=== PATIENT | female | born 1980 | race Caucasian/White ===

== ENCOUNTER 2020-04-09 10:51 | Emergency (ER) | payer OTHER ==
[~2020-04-09] VITALS: Ht 157.5 cm; Wt 72.7 kg
[2020-04-09] MEDS ORDERED: HALOPERIDOL LACTATE 5 MG/ML VIAL. IVP ONE (11:00)
[2020-04-09 11:19] LABS: BASO # 0.1 x10^3/uL (0.0-0.2); BASO % 1 % (0-3); EOS # 0.1 x10^3/uL (0.0-0.7); EOS % 1 % (0-3); HEMATOCRIT 39.7 % (36.0-47.0); HEMOGLOBIN 14.1 g/dL (12.0-15.5); LYMPH # 2.4 x10^3/uL (1.0-4.8); LYMPH % 24 % (24-48); MEAN CORPUSCULAR HEMOGLOBIN 31 pg (25-35); MEAN CORPUSCULAR HGB CONC 35 g/dL (31-37); MEAN CORPUSCULAR VOLUME 87 fL (79-100); MONO # 0.4 x10^3/uL (0.0-1.1); MONO % 4 % (0-9); NEUT % 70 % (31-73); PLATELET COUNT 356 x10^3/uL (140-400); RED BLOOD COUNT 4.58 x10^6/uL (3.50-5.40); RED CELL DISTRIBUTION WIDTH 14.7 % (11.5-14.5); WHITE BLOOD COUNT 9.9 x10^3/uL (4.0-11.0)
--- NOTE | 2020-04-09 11:20 | PHYS DOC ---
General Adult EDM: Chief Complaint: DRUG ABUSE HPI: HPI: History taken from patient and EMS. Patient is a 3-year-old female found a local gas station due to altered mental status. She does endorse a history of schizophrenia. States however this is different. She does note that she has used amphetamines recently to try and stay awake. States she is hearing voices and seeing dark shadows. She states she feels that something is inside her body. She denies any pain related complaints. She does note a history of hospitalization due to mental health disorders in the past. Denies any recent hospitalizations. Denies any suicidal homicidal ideations. No medications given in route by EMS. They state that they were called to the gaseous because the patient was acting erratic. Patient denies any drug ingestions. Denies alcohol ingestions. No further history can be obtained. Review of Systems: Review of Systems: Constitutional: Denies fever or chills. [] Eyes: Denies change in visual acuity. [] HENT: Denies nasal congestion or sore throat. [] Respiratory: Denies cough or shortness of breath. [] Cardiovascular: Denies chest pain or edema. [] GI: Denies abdominal pain, nausea, vomiting, bloody stools or diarrhea. [] : Denies dysuria. [] Musculoskeletal: Denies back pain or joint pain. [] Integument: Denies rash. [] Neurologic: Denies headache, focal weakness or sensory changes. [] Endocrine: Denies polyuria or polydipsia. [] Lymphatic: Denies swollen glands. [] Psychiatric: Positive for psychosis Heart Score: Risk Factors: Risk Factors: DM, Current or recent (<one month) smoker, HTN, HLP, family history of CAD, obesity. Risk Scores: Score 0 - 3: 2.5% MACE over next 6 weeks - Discharge Home Score 4 - 6: 20.3% MACE over next 6 weeks - Admit for Clinical Observation Score 7 - 10: 72.7% MACE over next 6 weeks - Early Invasive Strategies Current Medications: Current Medications Medications (Trade) Dose Ordered Sig/James Start Time Stop Time Status Last Admin Dose Admin Haloperidol Lactate (Haldol Inj) 5 mg 1X ONCE 04/09/20 11:00 04/09/20 11:01 UNV Allergies: Allergies: Allergies Coded Allergies Type Severity Reaction Last Updated Verified No Known Drug Allergies 04/09/20 No Physical Exam: PE: Constitutional: Well developed, well nourished, no acute distress, non-toxic appearance. [] HENT: Normocephalic, atraumatic, bilateral external ears normal, oropharynx moist, no oral exudates, nose normal. [] Eyes: PERRLA, EOMI, conjunctiva normal, no discharge. [] Neck: Normal range of motion, no tenderness, supple, no stridor. [] Cardiovascular:Heart rate regular rhythm, no murmur [] Lungs & Thorax: Bilateral breath sounds clear to auscultation [] Abdomen: soft, no tenderness, no masses, no pulsatile masses. [] Skin: Warm, dry, no erythema, no rash. [] Back: No tenderness, no CVA tenderness. [] Extremities: No tenderness, no cyanosis, no clubbing, ROM intact, no edema. [] Neurologic: Alert with intact cognitive function. No aphasia, dysarthria, or neglect. GCS 15. Pupils 3 mm briskly reactive b/l. No APD present. Cranial nerves 2-12 grossly intact; no facial asymmetry present, tongue midline, shoulder shrugging strength intact. Strength 5/5 and symmetric throughout. Light touch sensation intact throughout. Cerebellar testing appropriate without evidence of dysdiadochokinesia. DTR's 2+ in all 4 extremities. Negative pronator drift bilaterally. Gait normal Psychologic: Tangential thought process. Responding to visual and auditory hallucinations. Rapid and pressured speech. Intermittently agitated. Current Patient Data: Labs: Laboratory Tests Test 04/09/20 11:00 04/09/20 14:35 White Blood Count 9.9 x10^3/uL Red Blood Count 4.58 x10^6/uL Hemoglobin 14.1 g/dL Hematocrit 39.7 % Mean Corpuscular Volume 87 fL Mean Corpuscular Hemoglobin 31 pg Mean Corpuscular Hemoglobin Concent 35 g/dL Red Cell Distribution Width 14.7 % Platelet Count 356 x10^3/uL Neutrophils (%) (Auto) 70 % Lymphocytes (%) (Auto) 24 % Monocytes (%) (Auto) 4 % Eosinophils (%) (Auto) 1 % Basophils (%) (Auto) 1 % Neutrophils # (Auto) 7.0 x10^3/uL Lymphocytes # (Auto) 2.4 x10^3/uL Monocytes # (Auto) 0.4 x10^3/uL Eosinophils # (Auto) 0.1 x10^3/uL Basophils # (Auto) 0.1 x10^3/uL Maternal Serum HCG Beta Subunit < 1 mIU/mL Sodium Level 140 mmol/L Potassium Level 3.7 mmol/L Chloride Level 104 mmol/L Carbon Dioxide Level 24 mmol/L Anion Gap 12 Blood Urea Nitrogen 7 mg/dL Creatinine 0.9 mg/dL Estimated GFR (Cockcroft-Gault) 69.3 BUN/Creatinine Ratio 8 Glucose Level 124 mg/dL Calcium Level 9.4 mg/dL Total Bilirubin 0.4 mg/dL Aspartate Amino Transf (AST/SGOT) 17 U/L Alanine Aminotransferase (ALT/SGPT) 26 U/L Alkaline Phosphatase 106 U/L Creatine Kinase 70 U/L Total Protein 7.2 g/dL Albumin 3.9 g/dL Albumin/Globulin Ratio 1.2 Lipase 84 U/L Salicylates Level 5.6 mg/dL Salicylate Last Dose Date Unknown Salicylate Last Dose Time Unknown Acetaminophen Level < 2 mcg/ml Acetaminophen Last Dose Date Unknown Acetaminophen Last Dose Time Unknown Ethyl Alcohol Level < 10 mg/dL Urine Collection Type Unknown Urine Color Yellow Urine Clarity Clear Urine pH 7.5 Urine Specific [place] <=1.005 Urine Protein Negative mg/dL Urine Glucose (UA) Negative mg/dL Urine Ketones (Stick) Negative mg/dL Urine Blood Negative Urine Nitrite Negative Urine Bilirubin Negative Urine Urobilinogen Dipstick 1.0 mg/dL Urine Leukocyte Esterase Negative Urine RBC 0 /HPF Urine WBC 0 /HPF Urine Squamous Epithelial Cells Mod /LPF Urine Bacteria Few /HPF Urine Opiates Screen Neg Urine Methadone Screen Neg Urine Barbiturates Neg Urine Phencyclidine Screen Neg Urine Amphetamine/Methamphetamine Pos Urine Benzodiazepines Screen Neg Urine Cocaine Screen Neg Urine Cannabinoids Screen Neg Urine Ethyl Alcohol Neg Current Medications Medications (Trade) Dose Ordered Sig/James Route PRN Reason Start Time Stop Time Status Last Admin Dose Admin Haloperidol Lactate (Haldol Inj) 5 mg 1X ONCE IVP 04/09/20 11:00 04/09/20 11:18 DC 04/09/20 11:36 Nicotine (Nicoderm Cq 21mg) 1 patch PRN DAILY PRN TD SMOKING CESSATION 04/09/20 14:30 04/09/20 15:22 Vital Signs: Vital Signs Date Time Temp Pulse Resp B/P (MAP) Pulse Ox O2 Delivery O2 Flow Rate FiO2 04/09/20 15:58 92 20 149/79 (102) 99 Room Air 04/09/20 14:38 20 122/83 (96) Room Air 04/09/20 13:52 88 113/75 (88) 97 Room Air 04/09/20 13:22 94 108/63 (78) 98 Room Air 04/09/20 12:24 106 18 114/72 (86) 98 Room Air 04/09/20 10:51 99.1 113 20 142/80 (100) 100 Room Air 99.1 EKG: EKG: [] EKG consistent with sinus tachycardia. Ventricular rate 105 bpm. Left axis noted. Intervals normal. No acute ischemic changes noted. Radiology/Procedures: Radiology/Procedures: [facility] [address] [place] [address] IMAGING REPORT Signed PATIENT: CYNTHIA SAUCEDO ACCOUNT: [id number] : 1980 LOCATION: ER AGE: 39 SEX: F EXAM STATUS: PRE ER ORD. PHYSICIAN: ONIEL MCKNIGHT DO REASON: AMS PROCEDURE: CT HEAD AND CERVICAL SPINE WO EXAM: 1. CT HEAD WITHOUT CONTRAST. 2. CT CERVICAL SPINE WITHOUT CONTRAST. HISTORY: Altered mental status, trauma. TECHNIQUE: Computed tomography of the head and cervical spine was performed without intravenous contrast. One or more of the following individualized dose reduction techniques were utilized for this examination: 1. Automated exposure control. 2. Adjustment of the mA and/or kV according to patient size. 3. Use of iterative reconstruction technique. COMPARISON: None. FINDINGS: There is no intracranial hemorrhage. Ivan-white differentiation is preserved. The ventricles are normal in size and position. The visualized paranasal sinuses appear clear. The orbits are unremarkable. The temporal bones are unremarkable. The calvarium reveals no suspicious lesions. Straightening of the normal cervical lordosis is likely positional. There is mild osteoarthritis at C1/2. No fractures are identified. Degenerative disc disease is mild to moderate at C5-6. There is no prevertebral soft tissue swelling. There is a moderate posterior disc bulge at C5-6. Uncovertebral osteoarthritis is moderate to severe on the left greater than right. Neural foraminal stenosis is moderate on the left and moderate to severe on the right. Central canal stenosis appears at least mild. IMPRESSION: 1. No acute intracranial findings. 2. No cervical fracture or malalignment. 3. Moderate degenerative changes at C5-6 results in moderate to severe bilateral neural foraminal stenosis and at least mild central canal stenosis. MRI could further assess stenosis if there is persistent concern. Electronically signed by: Vivien Devine MD (04/09/2020 12:45 PM) [id number] DICTATED and SIGNED BY: RENE DEVINE MD DATE: 04/09/20 [id number] [] Course & Med Decision Making: Course & Med Decision Making Pertinent Labs and Imaging studies reviewed. (See chart for details) [] Patient is a 39-year-old female who presents via EMS for altered mental status. Her EMS there called her local gas agent because patient was experiencing erratic behavior. On arrival patient does appear to be responding to auditory and visual stimuli. She does note history of schizophrenia and rece nt methamphetamine usage. No obvious focal neurologic deficits appreciated. Given her acute psychosis 5 mg of IV Haldol was administered. Broad-spectrum work-up was obtained. CT imaging without acute abnormality. Urinalysis does show positive amphetamines. Maner of labs unremarkable. Patient was evaluated psychiatric assessment team. Patient to become much more calm and rational after receiving medication. She was monitored in the emergency department for quite some time. Continues to deny any suicidal homicidal ideations. Psychiatric assessment team as well as myself do not feel she is a threat to herself. She was to follow-up with mental health services in 2 days. Does have Zyprexa at home that she takes nightly. Patient is appropriate for discharge home. Precautions discussed and understood. Stable for discharge home. Dragon Disclaimer: Zackary Disclaimer: This electronic medical record was generated, in whole or in part, using a voice recognition dictation system. Departure Departure Impression: Primary Impression: Psychosis Qualified Codes: F29 - Unspecified psychosis not due to a substance or known physiological condition Additional Impression: Amphetamine abuse Disposition: 01 DC HOME SELF CARE/HOMELESS Condition: STABLE Patient Instructions: Methamphetamine Abuse, Complications Additional Instructions: Please follow-up with your mental provider in 2 days at your regularly scheduled appointment. ONIEL MCKNIGHT DO Apr 09, 2020 11:20
[2020-04-09 11:40] LABS: CALCIUM 9.4 mg/dL (8.5-10.1); CREATININE 0.9 mg/dL (0.6-1.0); GFR 69.3; POTASSIUM 3.7 mmol/L (3.5-5.1)
[2020-04-09 11:45] LABS: ALBUMIN 3.9 g/dL (3.4-5.0); ALBUMIN/GLOBULIN RATIO 1.2 (1.0-1.7); TOTAL BILIRUBIN 0.4 mg/dL (0.2-1.0); TOTAL PROTEIN 7.2 g/dL (6.4-8.2)
[2020-04-09 11:47] LABS: ACETAMIN < 2 mcg/ml (10-30); ETHANOL < 10 mg/dL (0-10); SALIC 5.6 mg/dL (2.8-20.0)
--- NOTE | 2020-04-09 12:04 | RAD ---
EXAM: CHEST ONE VIEW. HISTORY: Altered mental status.. COMPARISON: None. FINDINGS: A frontal view of the chest is obtained. There are no confluent infiltrates. There is no pneumothorax or pleural effusion. The heart is not enlarged. IMPRESSION: 1. No confluent infiltrates. Electronically signed by: Vivien Devine MD (04/09/2020 12:01 PM) [id number]
--- NOTE | 2020-04-09 12:48 | RAD ---
EXAM: 1. CT HEAD WITHOUT CONTRAST. 2. CT CERVICAL SPINE WITHOUT CONTRAST. HISTORY: Altered mental status, trauma. TECHNIQUE: Computed tomography of the head and cervical spine was performed without intravenous contrast. One or more of the following individualized dose reduction techniques were utilized for this examination: 1. Automated exposure control. 2. Adjustment of the mA and/or kV according to patient size. 3. Use of iterative reconstruction technique. COMPARISON: None. FINDINGS: There is no intracranial hemorrhage. Ivan-white differentiation is preserved. The ventricles are normal in size and position. The visualized paranasal sinuses appear clear. The orbits are unremarkable. The temporal bones are unremarkable. The calvarium reveals no suspicious lesions. Straightening of the normal cervical lordosis is likely positional. There is mild osteoarthritis at C1/2. No fractures are identified. Degenerative disc disease is mild to moderate at C5-6. There is no prevertebral soft tissue swelling. There is a moderate posterior disc bulge at C5-6. Uncovertebral osteoarthritis is moderate to severe on the left greater than right. Neural foraminal stenosis is moderate on the left and moderate to severe on the right. Central canal stenosis appears at least mild. IMPRESSION: 1. No acute intracranial findings. 2. No cervical fracture or malalignment. 3. Moderate degenerative changes at C5-6 results in moderate to severe bilateral neural foraminal stenosis and at least mild central canal stenosis. MRI could further assess stenosis if there is persistent concern. Electronically signed by: Vivien Devine MD (04/09/2020 12:45 PM) [id number]
[2020-04-09] MEDS ORDERED: NICOTINE 21MG PATCH. TD PRN (14:30)
[2020-04-09 14:46] LABS: BILIRUBIN,URINE NEGATIVE (NEG); CLARITY,URINE CLEAR; COLOR,URINE YELLOW; NITRITE,URINE NEGATIVE (NEG); PH,URINE 7.5 (<5.0-8.0); PROTEIN,URINE NEGATIVE (NEG-TRACE)
[2020-04-09 14:53] LABS: AMPHETAMINE/METHAMPHETAMINE POS (NEG); BARBITURATES NEG (NEG); BENZODIAZEPINES NEG (NEG); CANNABINOIDS NEG (NEG); COCAINE NEG (NEG); METHADONE NEG (NEG); OPIATES NEG (NEG); PHENCYCLIDINE NEG (NEG)
[2020-04-09 15:06] LABS: BACTERIA,URINE FEW /HPF (0-FEW); RBC,URINE 0 /HPF (0-2); WBC,URINE 0 /HPF (0-4)
[2020-04-09 15:58] VITALS: BP 149/79
--- NOTE | 2020-04-10 18:50 | EKG ---
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
== END 2020-04-09 16:30 | disposition home or self-care (01) ==
LOC: ER 10:51
DX: F29 Unspecified psychosis not due to a substance or known physiological condition (principal); F15.10 Other stimulant abuse, uncomplicated; R41.82 Altered mental status, unspecified; M54.2 Cervicalgia; F20.9 Schizophrenia, unspecified; I45.10 Unspecified right bundle-branch block
CPT/HCPCS: 36415; 70450; 71045; 72125; 80053; 80307; 80329; 81001; 82550; 83690; 84702; 85025; 93005; 99285; G0480; J1630

== ENCOUNTER 2020-06-06 22:34 | Emergency (ER) | payer OTHER ==
[~2020-06-06] VITALS: Ht 157.5 cm; Wt 68.0 kg
[2020-06-06] MEDS ORDERED: LORazepam 0.5 MG TABLET PO ONE ×2 (23:00→23:45)
[2020-06-06 23:05] LABS: BARBITURATES NEG (NEG); BENZODIAZEPINES NEG (NEG); CANNABINOIDS NEG (NEG); COCAINE NEG (NEG); METHADONE NEG (NEG); OPIATES NEG (NEG); PHENCYCLIDINE NEG (NEG)
[2020-06-06 23:06] LABS: AMPHETAMINE/METHAMPHETAMINE POS (NEG)
--- NOTE | 2020-06-06 23:14 | PHYS DOC ---
Past Medical History Past Medical History: Anxiety, Schizophrenia (JOHNSON ALLAN DO) Past Surgical History: (JOHNSON ALLAN DO) Smoking Status: Current Every Day Smoker Alcohol Use: None (JOHNSON ALLAN DO) General Adult EDM: Chief Complaint: PSYCH EVALUATION HPI: HPI: 39-year-old female past medical history of anxiety and schizophrenia (on Zoloft and Zyprexa), presents to the ED brought in by EMS after patient called 911, concern for visual hallucinations, "seeing a demon." Pt states demon is speaking to her but it's "nothing bad." Denies any assault or trauma. Admits to smoking methamphetamine earlier today. Denies any other coingestants. Denies any suicidal or homicidal ideations. C/o "it's hot," and points to her left hand. Reports compliance with her medications, no other co-ingestants. Able to obtain a history on repeat exams-pt easily distracted and overwhelmed "you're asking me too many questions." (JOHNSON ALLAN DO) Review of Systems: Review of Systems: Constitutional: Denies fever or chills. [] Eyes: Denies change in visual acuity. [] HENT: Denies nasal congestion or sore throat. [] Respiratory: Denies cough or shortness of breath. [] Cardiovascular: Denies chest pain or edema. [] GI: Denies abdominal pain, nausea, vomiting, bloody stools or diarrhea. [] : Denies dysuria or hematuria Musculoskeletal: Denies back pain or joint pain. [] Integument: Denies rash or sweating Neurologic: Denies headache, focal weakness or sensory changes. [] Endocrine: Denies polyuria or polydipsia. [] Lymphatic: Denies swollen glands. [] Psychiatric: Denies SI or HI (JOHNSON ALLAN DO) Heart Score: Risk Factors: Risk Factors: DM, Current or recent (<one month) smoker, HTN, HLP, family history of CAD, obesity. Risk Scores: Score 0 - 3: 2.5% MACE over next 6 weeks - Discharge Home Score 4 - 6: 20.3% MACE over next 6 weeks - Admit for Clinical Observation Score 7 - 10: 72.7% MACE over next 6 weeks - Early Invasive Strategies (JOHNSON ALLAN DO) Current Medications: Current Medications Medications (Trade) Dose Ordered Sig/James Start Time Stop Time Status Last Admin Dose Admin Lorazepam (Ativan) 0.25 mg 1X ONCE 06/06/20 23:00 06/06/20 23:01 DC (JOHNSON ALLAN DO) Allergies: Allergies: Allergies Coded Allergies Type Severity Reaction Last Updated Verified No Known Drug Allergies 04/09/20 No (JOHNSON ALLAN DO) Physical Exam: PE: Constitutional: no acute distress, non-toxic upkept appearance. HENT: Normocephalic, atraumatic, poor dentition, no signs of trauma Eyes: EOMI, conjunctiva normal, no discharge. Neck: Normal range of motion, supple, Cardiovascular: S1/2 present, regular rhythm Lungs & Thorax: Speaking in full sentences, bilateral equal chest rise, no tachypnea or increased work of breathing Abdomen: soft, no tenderness, Skin: Warm, dry, no erythema, no rash. [] Back: No tenderness, no CVA tenderness. [] Extremities: No tenderness or swelling, red left hand - multiple hair torniquests on upper forearm fitting tightly - after removed, perfusion normal Neurologic: Alert and oriented to self/location/year, normal motor function, normal sensory function, no focal deficits noted. [] Psychologic: very distracted and paranoid, suspect active AHs/VHs, calm, mild irritablity with frequent questioning (JOHNSON ALLAN DO) Current Patient Data: Labs: Laboratory Tests Test 06/06/20 22:50 06/06/20 22:53 Urine Opiates Screen Neg (NEG) Urine Methadone Screen Neg (NEG) Urine Barbiturates Neg (NEG) Urine Phencyclidine Screen Neg (NEG) Urine Amphetamine/Methamphetamine Pos (NEG) Urine Benzodiazepines Screen Neg (NEG) Urine Cocaine Screen Neg (NEG) Urine Cannabinoids Screen Neg (NEG) Urine Ethyl Alcohol Neg (NEG) POC Urine HCG, Qualitative Hcg negative (Negative) Vital Signs: Vital Signs Date Time Temp Pulse Resp B/P (MAP) Pulse Ox O2 Delivery O2 Flow Rate FiO2 06/06/20 22:40 98.6 70 20 116/68 (84) 99 Room Air 98.6 (MABELJOHNSON DO) EKG: EKG: [] (MABELJOHNSON DO) Radiology/Procedures: Radiology/Procedures: [] (JOHNSON ALLAN DO) Course & Med Decision Making: Course & Med Decision Making Pertinent Labs and Imaging studies reviewed. (See chart for details) Concern for substance induced psychosis vs psychosis with schizophrenia requiring to medications for sedation or agitation. Pt able to be verbally re- directed. No hypertension or tachycardia. Drug screen positive for methamphetamines/amphetamines. K 3.4. Rapid Covid test negative. Negative for alcohol. PAT team assessed pt but due to disorganized nature, will re-evaluation in am s/p benzos in ed. patient calm in ED and sleeping comfortably. No events overnight. Due to shift change, pt was signed out to oncoming physician Dr. Miranda. Will reevaluate pt with pat team to determine if sxs are drug or psych related. Pt stable at time of signout. (JOHNSON ALLAN DO) Course & Med Decision Making Assumed care of patient at checkout from prior provider. At checkout evaluation by PET team was pending. At this time patient has become sober and is doing much better. She was able to safety plan. She is not homicidal or suicidal. She does not appear to be a harm to herself or others at this time. Patient's test results and vitals while in the ED were fully reviewed and discussed with the patient. Patient is stable and at this time does not need admission to the hospital. We have discussed strict return precautions and the importance of following up with their Primary Care Physician. Patient stated understanding and was given an opportunity to ask any questions. Patient is in agreement with plan. (KAYLYN MIRANDA MD) Dragon Disclaimer: Dragon Disclaimer: This electronic medical record was generated, in whole or in part, using a voice recognition dictation system. (JOHNSON ALLAN DO) Departure Departure Impression: Primary Impression: Visual hallucinations Additional Impressions: Auditory hallucinations Schizophrenia Disposition: 01 DC HOME SELF CARE/HOMELESS Condition: STABLE Referrals: UNKNOWN PCP NAME (PCP) Patient Instructions: Methamphetamine Abuse, Complications JOHNSON ALLAN DO Jun 06, 2020 23:14 KAYLYN MIRANDA MD Jun 07, 2020 06:54
[2020-06-06 23:29] LABS: BASO # 0.1 x10^3/uL (0.0-0.2); BASO % 1 % (0-3); EOS # 0.2 x10^3/uL (0.0-0.7); EOS % 2 % (0-3); LYMPH # 3.6 x10^3/uL (1.0-4.8); LYMPH % 31 % (24-48); MEAN CORPUSCULAR HEMOGLOBIN 30 pg (25-35); MEAN CORPUSCULAR HGB CONC 35 g/dL (31-37); MEAN CORPUSCULAR VOLUME 86 fL (79-100); MONO # 0.7 x10^3/uL (0.0-1.1); MONO % 6 % (0-9); NEUT # 7.1 x10^3/uL (1.8-7.7); NEUT % 61 % (31-73); PLATELET COUNT 351 x10^3/uL (140-400); RED BLOOD COUNT 4.65 x10^6/uL (3.50-5.40); RED CELL DISTRIBUTION WIDTH 13.9 % (11.5-14.5); WHITE BLOOD COUNT 11.7 x10^3/uL (4.0-11.0)
[2020-06-06 23:40] LABS: CALCIUM 9.6 mg/dL (8.5-10.1); CREATININE 0.9 mg/dL (0.6-1.0); GFR 69.3; POTASSIUM 3.4 mmol/L (3.5-5.1)
[2020-06-06 23:46] LABS: ALBUMIN 3.7 g/dL (3.4-5.0); TOTAL BILIRUBIN 0.9 mg/dL (0.2-1.0); TOTAL PROTEIN 7.4 g/dL (6.4-8.2)
[2020-06-07 08:04] VITALS: BP 104/67
== END 2020-06-07 08:07 | disposition home or self-care (01) ==
LOC: ER 22:34
DX: F20.9 Schizophrenia, unspecified (principal); Z20.828 Contact with and (suspected) exposure to other viral communicable diseases; F41.9 Anxiety disorder, unspecified; F17.200 Nicotine dependence, unspecified, uncomplicated
CPT/HCPCS: 36415; 80053; 80307; 81025; 85025; 87426; 99285; C9803; G0480; U0003